=== PATIENT | male | born 1940 | race Caucasian/White ===

== ENCOUNTER 2019-04-26 08:47 | Emergency (ER) | payer OTHER, BC ==
[~2019-04-26] VITALS: Ht 177.8 cm; Wt 80.7 kg
[~2019-04-26 08:47] MED LIST: AMLODIPINE BESYL5 MG PO; ASPIRIN81 M2 PO; ATENOLOL 25MG T25 MG PO; BETAPACE80 MG PO; FISH OIL 1,2001 EACH PO; FLOMAX0.4 MG PO; IRON325 PO; KEFLEX250 M1 PO; LEVOTHYROXINE0.05 MG PO; MULTIVITAMINS1 EAC7 PO; OCUTABS TABLET1 EACH PO; POLY-IRON 1501 EACH INTRAPERIT; PRADAXA150 MG PO; PRILOSEC 20 MG20 MG PO; PRILOSEC20 MG PO; PRILOSEC40 MG PO; SIMVASTATIN20 MG PO
[2019-04-26 08:54] VITALS: BP 165/86
[2019-04-26 09:16] LABS: ABSOLUTE NEUTROPHILS 2.3 thou/uL (1.4-8.2); BASOPHILS 1.4 % (0.0-2.0); LYMPHOCYTES 23.4 % (24.0-44.0); MCH 29.8 pg (26.0-34.0); MCHC 32.6 g/dL (28.0-37.0); MCV 91.4 fL (80.0-100.0); MONOCYTES 10.4 % (1.0-8.0); PLATELET COUNT 140 thou/uL (150-400); POLYS 61.8 % (36.0-66.0); RBC 4.71 mil/uL (4.50-6.00); RDW 14.3 % (10.5-14.5); WBC 3.6 thou/uL (4.0-11.0)
[2019-04-26 09:44] LABS: ANION GAP 7 mmol/L (7-16); BUN 21 mg/dL (7-18); CALCIUM 8.1 mg/dL (8.5-10.1); CHLORIDE 105 mmol/L (98-107); CO2 27 mmol/L (21-32); CREATININE 1.3 mg/dL (0.7-1.3); GLUCOSE 88 mg/dL (74-106); SODIUM 139 mmol/L (136-145)
[2019-04-26 09:51] LABS: POTASSIUM 4.5 mmol/L (3.5-5.1)
[2019-04-26 09:54] LABS: ALBUMIN 3.3 g/dL (3.4-5.0); SGOT 31 U/L (15-37); SGPT 20 U/L (30-65); TOTAL BILIRUBIN 0.7 mg/dL (<0.1-1.0); TOTAL PROTEIN 7.6 g/dL (6.4-8.2); TROPONIN-I <0.06 ng/mL (<0.06)
[2019-04-26 10:56] VITALS: BP 148/87
--- NOTE | 2019-04-26 11:02 | NUR ---
PT TO REGISTERED PUBLIC SURVEYOR AT 8212 148/87 27
--- NOTE | 2019-04-28 13:05 | CATHLAB ---
[facility] [place] [address] INVASIVE PROCEDURE REPORT Name: DESTINY CUELLAR Room #: DEP CARLITO Kenney#: [id number] Admission: 04/26/19 Attend Phys: Discharge: 04/26/19 Date of : 38 Report #: [id number] THIS REPORT FOR: cc: Alden Murillo MD, Matthew S. MD Mancuso, Gerald M. 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 A PINNACLE 6FR Sheath #[id number] sheath was inserted into the RFA^. Coronary angiography was performed using coronary diagnostic catheters. The right coronary system was accessed and visualized with a JR4 catheter. The left coronary system was accessed and visualized with a JL4 catheter. The left ventricle was accessed and visualized with a Pigtail catheter. Left ventriculogram was performed in 30 degree projection. An aortogram of the abdominal aorta was performed. Pre-demployment femoral angiogram was performed . The patient tolerated the procedure well and there were no complications associated with the procedure. There was no hematoma. Intraoperative Conscious Sedation Sedation start time: 11:34 Case end Time: 12:09 [facility] [address] [place] [address] INVASIVE PROCEDURE REPORT Name: DESTINY CUELLAR [facility] [id number] Admission: 04/26/19 Attend Phys: Discharge: 04/26/19 Date of : 38 Report #: [id number] Fentanyl 50 mcg Versed 2 mg Fluoro Time: 3.50 minutes Dose: DAP 3802.10 cGycm2 440 mGy Contrast Type and Amount: Visipaque 120 ml Hemodynamics The aortic pressure is 162/85 mmHg with a mean of 114 mmHg. The left ventricular pressure is 145/6 mmHg with a mean of mmHg. The left ventricular end diastolic pressure is 14 mmHg. Conclusion #1 normal left ventricular size and systolic function 50-55% smaller inferior basilar hypokinesis #2 abdominal aorta intact with mild irregularities no aneurysm. 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 This is previously noted. Recommendations and plan continue aggressive risk factor modification. No indication for coronary intervention. <ELECTRONICALLY SIGNED> By: Archie Vazquez MD, FACC 04/28/19 1304 1304 1304 Archie Vazquez MD, FACC /INF
--- NOTE | 2019-05-03 11:22 | EKG ---
[facility] [address] ELECTROCARDIOGRAM REPORT Name: DESTINY CUELLAR Room #: DEP [facility]#: [id number] Admission: 04/26/19 Attend Phys: Discharge: 04/26/19 Date of : 38 Report #: [id number] THIS REPORT FOR: cc: Alden Murillo MD, Matthew S. MD Couchonnal, Luis F. 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
== END 2019-04-26 10:56 | disposition still patient (30) ==
LOC: ER 08:47 → EROBS 10:52 → TBACV 10:52 → ER 10:52 → TBACV 10:56 → EROBS 10:56
PROVIDERS: Emergency Medicine
DX: R07.9 Chest pain, unspecified (principal); I10 Essential (primary) hypertension; I48.91 Unspecified atrial fibrillation; I25.10 Atherosclerotic heart disease of native coronary artery without angina pectoris; E78.00 Pure hypercholesterolemia, unspecified; E03.9 Hypothyroidism, unspecified; K21.9 Gastro-esophageal reflux disease without esophagitis; Z90.49 Acquired absence of other specified parts of digestive tract; Z86.73 Personal history of transient ischemic attack (TIA), and cerebral infarction without residual deficits; Z87.891 Personal history of nicotine dependence

== ENCOUNTER → 2019-05-21 | Outpatient (CLI) | payer OTHER, BC | LOC: SJCVC 12:48 | DX: Z45.018 Encounter for adjustment and management of other part of cardiac pacemaker (principal); I25.10 Atherosclerotic heart disease of native coronary artery without angina pectoris; I48.91 Unspecified atrial fibrillation; I10 Essential (primary) hypertension; E78.00 Pure hypercholesterolemia, unspecified; I49.5 Sick sinus syndrome; Z90.49 Acquired absence of other specified parts of digestive tract; Z79.899 Other long term (current) drug therapy ==